=== PATIENT | female | born 1970 | race Caucasian/White ===

== ENCOUNTER → 2016-03-11 | Outpatient (CLI) | payer OTHER ==
--- NOTE | 2016-03-12 11:46 | MM ---
Reason for exam: screening (asymptomatic). Last mammogram was performed 1 year and 8 months ago. History: Patient is nulliparous. Physical Findings: A clinical breast exam by your physician is recommended on an annual basis and results should be correlated with mammographic findings. MG Screening Mammo w CAD Bilateral CC and MLO view(s) were taken. Prior study comparison: June 30, 2014, bilateral MG screening mammo w CAD. June 21, 2013, bilateral MG screening mammo w CAD. There are scattered fibroglandular densities. No significant changes when compared with prior studies. ASSESSMENT: Negative, BI-RAD 1 RECOMMENDATION: Routine screening mammogram of both breasts in 1 year.
== END | disposition home or self-care (01) ==
LOC: RADMAMWWP 16:31
PROVIDERS: ATTEND Obstetrics & Gynecology
DX: Z12.31 Encounter for screening mammogram for malignant neoplasm of breast (principal)

== ENCOUNTER → 2018-10-22 | Outpatient (CLI) | payer OTHER ==
--- NOTE | 2018-10-25 09:11 | MM ---
Reason for exam: screening (asymptomatic). Last mammogram was performed 2 years and 7 months ago. History: Patient is nulliparous. Physical Findings: A clinical breast exam by your physician is recommended on an annual basis and results should be correlated with mammographic findings. MG Screening Mammo w CAD Bilateral CC and MLO view(s) were taken. Prior study comparison: March 11, 2016, bilateral MG screening mammo w CAD. June 30, 2014, bilateral MG screening mammo w CAD. There are scattered fibroglandular densities. There is no discrete abnormality. ASSESSMENT: Negative, BI-RAD 1 RECOMMENDATION: Routine screening mammogram of both breasts in 1 year.
== END | disposition home or self-care (01) ==
LOC: RADMAMWWP 12:28
PROVIDERS: ATTEND Obstetrics & Gynecology
DX: Z12.31 Encounter for screening mammogram for malignant neoplasm of breast (principal)
CPT/HCPCS: 77067

== ENCOUNTER → 2021-07-25 | Outpatient (CLI) | payer MEDICAID ==
--- NOTE | 2021-07-26 14:16 | MM ---
Reason for Exam: Screening (asymptomatic). Last mammogram was performed 2 year(s) and 9 month(s) ago. Patient History: Menarche at age 11. Patient has no children. Last menstrual period: 07/20/2021 Risk Values: Tati 5 year model risk: 1.2%. NCI Lifetime model risk: 9.6%. Prior Study Comparison: 06/30/2014 Bilateral Screening Mammogram, [facility]. 03/11/2016 Bilateral Screening Mammogram, [facility]. 10/22/2018 Bilateral Screening Mammogram, [facility]. Tissue Density: There are scattered fibroglandular densities. Findings: Analyzed By CAD. There is a 0.5 cm nodule 5 cm from the nipple in the mid right breast craniocaudal view. Additional evaluation with ultrasound is recommended. Left breast appears stable. Overall Assessment: Incomplete: need additional imaging evaluation, BI-RAD 0 Management: Diagnostic Breast Ultrasound of the right breast. A negative mammogram report should not preclude additional follow up of suspicious palpable abnormalities. Patient should continue monthly self breast exam. A clinical breast exam by your physician is recommended on an annual basis and results should be correlated with mammographic findings. Electronically signed and approved by: Philipp Gao D.O. Radiologis
== END | disposition home or self-care (01) ==
LOC: RADMAMWWP 15:12
PROVIDERS: ATTEND Obstetrics & Gynecology
DX: Z12.31 Encounter for screening mammogram for malignant neoplasm of breast (principal)
CPT/HCPCS: 77067

== ENCOUNTER → 2021-07-30 | Outpatient (CLI) | payer MEDICAID ==
--- NOTE | 2021-07-30 11:23 | USB ---
Reason for Exam: Additional evaluation requested from abnormal screening. Patient History: Menarche at age 11. Patient has no children. Last menstrual period: 07/17/2021 Risk Values: Tati 5 year model risk: 1.2%. NCI Lifetime model risk: 9.6%. Technique: Method: Targeted. Prior Study Comparison: 03/11/2016 Bilateral Screening Mammogram, [facility]. 10/22/2018 Bilateral Screening Mammogram, [facility]. 07/25/2021 Bilateral MG screening mammo w CAD, [facility]. Findings: The upper section of the breast of the right breast, the periareolar of the right breast and the retroareolar of the right breast were scanned. Targeted right breast ultrasound 9 to 3:00 position including the entire periareolar region. No solid or cystic lesion. No axillary lymphadenopathy or duct ectasia. Overall Assessment: Incomplete: need additional imaging evaluation, BI-RAD 0 Management: Special View Mammogram of the right breast. Additional views right breast to include 3-D CT rolled lateral and 3-D lateral views. Electronically signed and approved by: Holly Metzger M.D. Radiologist
--- NOTE | 2021-07-30 11:34 | MM ---
Reason for Exam: Additional evaluation requested from abnormal screening. Last screening mammogram was performed less than 1 month ago. Patient History: Menarche at age 11. Patient has no children. Risk Values: Tati 5 year model risk: 1.2%. Tati 5 year model risk: 1.2%. NCI Lifetime model risk: 9.6%. NCI Lifetime model risk: 9.6%. Tissue Density: Right: There are scattered fibroglandular densities. Findings: The 4 mm nodule previously seen on the CC view on screening exam as a more low density appearance on the additional views. It is circumscribed and located approximately 12:00 position. Given the small size, low density, circumscribed morphology, a tiny benign cyst is noted. A 6 month follow-up mammogram can reassess. Overall Assessment: Probably benign, BI-RAD 3 Management: Diagnostic Mammogram of the right breast in 6 months. 1. Six-month follow-up diagnostic right breast mammogram. 2. Patient should continue monthly self breast exams. 3. This exam should not preclude additional follow-up of suspicious palpable abnormalities. Results were given to the patient verbally at the time of exam. Electronically signed and approved by: Holly Metzger M.D. Radiologist
== END | disposition home or self-care (01) ==
LOC: RADUSWWP 10:12
PROVIDERS: ATTEND Obstetrics & Gynecology
DX: R92.8 Other abnormal and inconclusive findings on diagnostic imaging of breast (principal)
CPT/HCPCS: 77061; 77065

== ENCOUNTER → 2022-08-04 | Outpatient (CLI) | payer MEDICAID ==
--- NOTE | 2022-08-04 15:02 | MM ---
Reason for Exam: Additional evaluation requested from prior study. Last screening mammogram was performed 12 month(s) ago. Patient History: Menarche at age 11. Patient has no children. Premenopausal. Last menstrual period: 07/02/2022 Risk Values: Tati 5 year model risk: 1.2%. NCI Lifetime model risk: 9.4%. Prior Study Comparison: 03/11/2016 Bilateral Screening Mammogram, [facility]. 10/22/2018 Bilateral Screening Mammogram, [facility]. 07/25/2021 Bilateral MG screening mammo w CAD, [facility]. 07/30/2021 Right MG 3D work up w/cad RT, [facility]. Tissue Density: The breast tissue is almost entirely fat. Findings: Analyzed By CAD. Area of concern seen on prior one year ago not definitively visualized on today's exam. No new suspicious masses, calcifications or distortions. Overall Assessment: Negative, BI-RAD 1 Management: Screening Mammogram of both breasts in 1 year. Results were given to the patient verbally at the time of exam. Patient should continue monthly self-breast exams. A clinical breast exam by your physician is recommended on an annual basis. This exam should not preclude additional follow-up of suspicious palpable abnormalities. Note on Tati scores and lifetime risk: 1. A Tati score greater than 3% is considered moderate risk. If this is the case, consider specialist referral to assess eligibility for a risk reducing agent. 2. If overall lifetime risk for the development of breast cancer is 20% or higher, the patient may qualify for future screening with alternating mammogram and breast MRI. Electronically signed and approved by: Christopher Cleary DO
== END | disposition home or self-care (01) ==
LOC: RADMAMWWP 13:57
PROVIDERS: ATTEND Family Medicine
DX: R92.8 Other abnormal and inconclusive findings on diagnostic imaging of breast (principal)
CPT/HCPCS: 77062; 77066

== ENCOUNTER → 2022-08-26 | Outpatient (CLI) | payer MEDICAID ==
[2022-08-26 15:03] VITALS: RESP 17
--- NOTE | 2022-08-26 16:27 | P.HPOB ---
History of Present Illness H&P Date: 08/26/22 Chief Complaint: The patient is here for her routine gynecologic exam. This is a 51-year-old with an LMP of 07/21/2022. The patient is here to establish with this office. It has been about one half years since her last pelvic exam. Menstrual periods have gotten slightly irregular about every 4-6 weeks and have varied in length ranging from 3-12 days. She has been experiencing hot flashes which are moderate during the past 1 year. She thinks she has a urine infection because she has been experiencing burning with urination, urinary frequency and urinary urgency. Review of Systems The patient's weight has been stable over the last year. She denies respiratory, cardiac, or G.I. problems. 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 History of Any Multi-Drug Resistant Organisms: None Reported Past Surgical History: No Surgical Hx Reported Past Anesthesia/Blood Transfusion Reactions: Unable to Obtain Past Psychological History: No Psychological Hx Reported (She denies current depression.) Smoking Status: Current every day smoker (Half a pack of cigarettes per day.) Past Alcohol Use History: Occasional (3-4 per week.) Past Drug Use History: Marijuana (A few times per week.) Additional History: She is been since 2000, but has been from her since 2020. He now lives in another state. 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 - Past Family History Mother Family Medical History: CVA/TIA Additional Family Medical History / Comment(s): . Maternal grandmother had esophagus cancer and a maternal aunt had brain aneurysm. Father Family Medical History: Hypertension Brother(s) Family Medical History: Hypertension Medications and Allergies Home Medications Medication Instructions Recorded Confirmed Type Atorvastatin [Lipitor] 20 mg PO DAILY 08/26/22 08/26/22 History Fluconazole 150 mg PO DAILY 08/26/22 08/26/22 History Lisinopril-Hctz 20-25 mg 1 tab PO DAILY 08/26/22 08/26/22 History [Zestoretic 20-25] Allergies Allergy/AdvReac Type Severity Reaction Status Date / Time varenicline [From Chantix] Allergy Rapid Unverified 08/26/22 14:39 Heart Rate Exam Vital Signs Resp 08/26/22 14:59 17 Intake and Output 08/26/22 08/26/22 08/26/22 06:59 14:59 22:59 Other: Weight 108.862 kg Blood pressure 146/80, height 5 feet 4 inches, weight 240 pounds, BMI 41.2, temperature 97.8, pulse 86, pulse oximeter 97%. This is a well-developed well-nourished heavyset white female who is alert and oriented times 3 in no acute distress. HEENT: Within normal limits. NECK: Supple without mass or thyromegaly. CHEST AND LUNGS: Clear to auscultation. HEART: Regular rate and rhythm. BREASTS: Are without mass or discharge. AXILLARY EXAM: Negative for adenopathy. BACK: Negative for CVA tenderness. ABDOMEN: Soft, nontender, without palpable masses. PELVIC EXAM: Normal external genitalia. Cervix and vagina appear normal. There is no unusual discharge. There is no evidence of prolapse. The uterus is midposition, nongravid size and nontender. There are no palpable adnexal masses or tenderness. Bimanual examination is somewhat limited secondary to her size. RECTAL EXAM: Rectovaginal exam is negative for mass or tenderness and is negative for occult blood. EXTREMITIES: Nontender. IMPRESSION: 1. 51-year-old perimenopausal female with vasomotor symptoms and slight menstrual irregularity and normal gynecologic exam. 2. Urinary symptoms including dysuria, urinary frequency and urinary urgency. Suspect UTI. PLAN: 1. Pap smear cotest was performed. 2. Self breast awareness was discussed with the patient. We have also discussed symptoms associated with inflammatory breast cancer. 3. Screening mammogram was done on 08/04/2022 and was benign. 4. Urine has been obtained for a clean catch urinalysis as well as a culture with sensitivities. 5. Osteoporosis prevention was discussed. I have stressed the importance of adequate calcium, vitamin D and regular exercise. Recommended amounts of calcium and vitamin D were also discussed. 6. She was advised to return in one year for her annual well woman exam.
[2022-08-27 03:49] LABS: Appearance,Urine Clear (Clear); Bilirubin,Urine Negative (Negative); Blood,Urine Negative (Negative); Color,Urine Yellow (Yellow); Ketones,Urine Negative (Negative); Nitrite,Urine Negative (Negative); Specific Gravity,Urine 1.012 (1.001-1.030); Urobilinogen,Urine 0.2 E.U./DL
--- NOTE | 2022-08-27 17:48 | P.PN ---
Progress Note - Text Progress Note Date: 08/27/22 Urinalysis done on 08/26/22 was negative. The patient was notified by phone on 08/27/22. She was encouraged to drink fluids and urinate frequently to flush the bladder. We will await the urine culture which is pending.
== END ==
LOC: WWCWWP 14:31
PROVIDERS: ATTEND Obstetrics & Gynecology
DX: Z01.419 Encounter for gynecological examination (general) (routine) without abnormal findings (principal); N95.1 Menopausal and female climacteric states; K21.9 Gastro-esophageal reflux disease without esophagitis; I10 Essential (primary) hypertension; E78.5 Hyperlipidemia, unspecified; Z79.899 Other long term (current) drug therapy; Z88.3 Allergy status to other anti-infective agents; Z87.891 Personal history of nicotine dependence
CPT/HCPCS: 81003; 87086

== ENCOUNTER → 2023-12-22 | Outpatient (CLI) | payer BC ==
[2023-12-22 12:56] VITALS: BP 165/86; PULSE 77; RESP 16; TEMP 97.9
--- NOTE | 2023-12-22 13:25 | P.HPOB ---
History of Present Illness H&P Date: 12/22/23 Chief Complaint: The patient is here for her routine gynecologic exam and ma mmogram. This is a 53-year-old -0-1-0 with an LMP of August 2023. Her menstrual periods continue to space out. She has only had 2 periods during the last year, 1 in October 2022 and 1 in August 2023. Her LMP lasted about 21 days. She does experience hot flashes and these are about the same as last year. She has a new boyfriend and has been with him for about 1 month. She states she has been using condoms, but a condom broke and she has noticed a slight discharge which is colorless and without odor or irritation. Review of Systems The patient has lost 9 pounds over the last year. She denies respiratory, cardiac, or G.I. problems. 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 History of Any Multi-Drug Resistant Organisms: None Reported Past Surgical History: No Surgical Hx Reported Past Anesthesia/Blood Transfusion Reactions: Unable to Obtain Past Psychological History: No Psychological Hx Reported Smoking Status: Current every day smoker ( About a half a pack of cigarettes per day.) Past Alcohol Use History: Occasional (5-6 drinks per week.) Past Drug Use History: Marijuana (Not every day.) Additional History: She has been since 2000 but has been from her since 2000. She has a new boyfriend since November 2023. - Past Family History Mother Family Medical History: CVA/TIA Additional Family Medical History / Comment(s): . Maternal grandmother had esophagus cancer and a maternal aunt had brain aneurysm. Father Family Medical History: Hypertension Brother(s) Family Medical History: Hypertension Medications and Allergies Home Medications Medication Instructions Recorded Confirmed Type Atorvastatin [Lipitor] 20 mg PO DAILY 08/26/22 08/26/22 History Fluconazole 150 mg PO DAILY 08/26/22 08/26/22 History Lisinopril-Hctz 20-25 mg 1 tab PO DAILY 08/26/22 08/26/22 History [Zestoretic 20-25] amLODIPine 10 mg PO DAILY 12/22/23 12/22/23 History Allergies Allergy/AdvReac Type Severity Reaction Status Date / Time varenicline [From Chantix] Allergy Rapid Unverified 12/22/23 12:53 Heart Rate Exam Vital Signs Temp Pulse Resp BP Pulse Ox 12/22/23 12:54 97.9 F 77 16 165/86 99 Intake and Output 12/21/23 12/22/23 12/22/23 22:59 06:59 14:59 Other: Weight 104.78 kg Height 5 feet 3 inches, weight 231 pounds, BMI 40.9. This is a well-developed well-nourished heavyset white female who is alert and oriented times 3 in no acute distress. HEENT: Within normal limits. NECK: Supple without mass or thyromegaly. CHEST AND LUNGS: Clear to auscultation. HEART: Regular rate and rhythm. BREASTS: Are without mass or discharge. AXILLARY EXAM: Negative for adenopathy. BACK: Negative for CVA tenderness. ABDOMEN: Soft, nontender, without palpable masses. PELVIC EXAM: Normal external genitalia with minimal atrophy. Cervix and vagina appear normal with minimal atrophy. There is a small amount of whitish thick liquid discharge without odor. There is no evidence of prolapse. The uterus is midposition, nongravid size and nontender. There are no palpable adnexal masses or tenderness. Bimanual examination is somewhat limited secondary to her size. RECTAL EXAM: Rectovaginal exam is negative for mass or tenderness and is negative for occult blood. EXTREMITIES: Nontender. IMPRESSION: 1. 53-year-old perimenopausal female with increasing oligomenorrhea and vasomotor symptoms. 2. Slight vaginal discharge noted by the patient without odor or irritation. Differential diagnosis will include Paty vaginitis, bacterial vaginosis, trichomonas, GC, chlamydia, and physiologic discharge. 3. Elevated blood pressure with history of chronic hypertension. PLAN: 1. Pap smear was deferred since she had a negative Pap smear cotest on 08/26/2022. 2. Self breast awareness was discussed with the patient. We have also discussed symptoms associated with inflammatory breast cancer. 3. Screening mammogram will be done today. 4. Affirm vaginitis panel was obtained from the vagina. GC and Chlamydia testing was obtained from the cervix. 5. I have recommended that she check her own blood pressures on a regular basis and follow-up with her PCP for blood pressure elevations. 6. She will continue to keep a menstrual calendar and return if menstrual problems. 7. STD prevention was discussed. Have stressed the importance of limiting sexual partners and I have recommended that she continue to use condoms if she is sexually active. 8. Colorectal cancer screening is done through [facility] with her PCP. 9. She was advised to return in one year for her annual well woman exam and as needed.
[2023-12-23 15:14] LABS: Gardnerella Negative (Negative); Trichomonas Negative (Negative)
[2023-12-24 12:50] LABS: C. trachomatis,PCR Negative (Negative)
--- NOTE | 2023-12-25 08:54 | P.PN ---
Progress Note - Text Progress Note Date: 12/25/23 OUTPATIENT FOLLOW-UP NOTE TEST(S)/RESULTS: Test results are 12/22/2023 include affirm vaginitis panel negative for Paty, Gardnerella, and trichomonas. Chlamydia testing was negative. GC testing is pending. METHOD OF NOTIFICATION: A message with these results was left on the patient's voicemail on 12/25/2023. PATIENT COMMENTS: DIAGNOSIS: Negative vaginitis panel and negative chlamydia testing. DISCUSSION: The lab brought to the testing was for chlamydia without gonorrhea. The order slip was sent to the lab indicating that both were ordered. The lab states it was run but not posted. They state they will posted after they received the order slip. PLAN: Await GC testing.
[2023-12-25 11:05] LABS: N. gonorrhoeae,PCR Negative (Negative)
== END ==
LOC: WWCWWP 12:23
PROVIDERS: ATTEND Obstetrics & Gynecology
DX: Z12.31 Encounter for screening mammogram for malignant neoplasm of breast (principal); N91.5 Oligomenorrhea, unspecified; N89.8 Other specified noninflammatory disorders of vagina; I10 Essential (primary) hypertension; F17.210 Nicotine dependence, cigarettes, uncomplicated; Z78.0 Asymptomatic menopausal state; Z79.899 Other long term (current) drug therapy; Z88.8 Allergy status to other drugs, medicaments and biological substances
CPT/HCPCS: 77063; 77067; 87480; 87491; 87510; 87660